=== PATIENT | female | born 1990 | race Two or more races ===

== ENCOUNTER 2018-03-21 13:28 | Outpatient (RCR) | payer MEDICAID ==
[~2018-03-21] VITALS: Ht 147.3 cm; Wt 75.7 kg
--- NOTE | 2018-03-21 16:52 | Medical Nutrition Therapy ---
Nutrition Anthropometrics Height (Inches): 58 (stated) Weight (Pounds): 167 (30wk PG-Prepreg wt 159#) Diego Nutrition Score: Diego Nutrition Risk Score: Dietary Referral Nutrition Risk Factors: Nutrition Risk Comment: Nutrition/Food History Breakfast: 2egg, beans, 2 corn tortilla, slasa, 1c juan Lunch: meat, 1c white rice, 1/2c veggie, unstw ice tea Dinner: leftovers- meat, veggiews, 1/2c rice Snacks: HS cookies and milk or cereal and milk Nutritional Education Nutrition Education Topic: Diabetic Nutrition (gestational) Learning Readiness: Interested Teaching Methods: Discussion, Handout, Demonstration Response to Teaching: Verbalize understanding Teaching Recipient: Patient Nutrition Counseling: pt. Pt states reads both Japanese and Faroese. Stated materials in Japanese was fine. Did addrss pt's cultural food preferences. Discussed what is gest DM, what BG numbers were and showed desired range. Discussed talking BG reading before brft and 2 hrs after meals. Reviewed Glycemic index and impact on BG. Reviewed hormonal affect and improtance of limiting CHO to 30 gm for brft and adding protein. Reviewed foods pt currently consuming that have higher GI. Provided meal plan of 30gm CHO. breaft, 45gm Lunch and supper with 15gm tid snacks. Encouraged protein, fat and non starchy veg with meals and snacks. Provided glucometer teaching. Pt was able to success test BG and record amount. Nutrition Monitoring & Eval RD Patient Assessment Time: [address] Assessment Type: RD Education Nutritional Comment: Provided 60 minutes diabetes education focusing on what is gestational diabetes, nutrition and glucometer education. Copies To Copies to: MAREN CORNELL BETH Mar 21, 2018 16:28
== END 2018-04-05 ==
LOC: LAB 13:28
PROVIDERS: ATTEND Physician Assistant
DX: O24.419 Gestational diabetes mellitus in pregnancy, unspecified control (principal); Z3A.30 30 weeks gestation of pregnancy
CPT/HCPCS: G0108 ×2

== ENCOUNTER 2018-05-18 04:51 | Inpatient (IN) | payer MEDICAID ==
[2018-05-18] VITALS (12 sets, daily range): BP systolic 103–121; BP diastolic 61–86; Ht 154.9 cm; Wt 81.6 kg
[~2018-05-18] VITALS: Ht 154.9 cm; Wt 81.6 kg
[~2018-05-18 04:51] MED LIST: PNV1COMB5
[2018-05-18] MEDS ORDERED: LR(*) 1000 ML BAG 1,000 ML IV SCH (04:53)
[2018-05-18] MEDS ORDERED: CITRIC ACID/SOD CITRATE 30 ML PO ONE (04:55)
[2018-05-18] MEDS ORDERED: cefOXitin/DEX(*) 2GM/50ML PREM 50 ML IVPB ONE (04:55)
[2018-05-18] MEDS ORDERED: FAMOTIDINE 20 MG/50 ML PREMIX IVPB ONE (04:55)
[2018-05-18] MEDS ORDERED: METOCLOPRAMIDE 10 MG/2 ML SDV IVP ONE (04:55)
--- NOTE | 2018-05-18 06:08 | History & Physical ---
History of Present Illness Age of Patient: 27 : 2 Para or TPAL: 1 EDC per LMP: May 26, 2018 Estimated Gestational Age: 39 Chief Complaint History of Present Illness Presents for scheduled at term. complicated by GDM well controlled with diet. History of prior x 1, low transverse in [place]. Past Medical, Surgical, Family and Obstetric Histories reviewed. Please see ACOG chart. History Allergies: Coded Allergies: No Known Drug Allergies (Unverified , 05/18/18) Med Rec Home Meds Reported Medications Pnv #116/Iron Fumarate/Fa/Dha (EXPECTA COMBO PACK) 1 Each Combo..pkg 05/03/18 Review of Systems All Systems Reviewed/Normal: Yes, Except as Noted Exam General Exam Vital Signs Vital Signs Date Time Temp Pulse Resp B/P (MAP) Pulse Ox O2 Delivery O2 Flow Rate FiO2 05/18/18 05:30 98.0 106 16 121/76 (91) 97 Room Air General Apperance: Alert/Awake/No Acute Distress Neuro: No Gross deficits Respiratory: No Respiratory Distress Abdomen: Soft, Non-Tender, Non-Distended Integumentary: Skin Intact without Lesions or Rash Psychological: Alert & Oriented X3, Appropriate Mood & Affect Fetus Heart Tone Variabilty: Moderate FHT Accelerations: 15X15 FHT Category: I Medical Decision Making VTE Prophylasis: Adult Deep Vein Thrombosis/Pulmonary: No Pharmacological Contraindicati: Pt at Low Risk for VTE Mechanical Contraindications: Pt at Low Risk for VTE Assessment and Plan Problems: (1) Previous section Assessment & Plan: Scheduled . Reviewed R/B/A and questions answered. TUNDE YEAGER MD May 18, 2018 06:08
[2018-05-18 06:10] LABS: PLATELET COUNT, AUTOMATED 138 K/uL (150-450)
[2018-05-18] MEDS ORDERED: WATER STERILE FOR IRRIG 1000ML IR ONE (06:21)
[2018-05-18] MEDS ORDERED: MORPHINE PF 5 MG/10 ML AMP ONE (07:00)
[2018-05-18] MEDS ORDERED: PHENYLEPHRINE 10 MG/1 ML VIAL ONE (07:00)
[2018-05-18] MEDS ORDERED: fentaNYL CITR 100 MCG/2 ML AMP ONE (07:00)
[2018-05-18] MEDS ORDERED: OXYTOCIN 10 UNIT/ML SDV ONE ×2 (07:29→07:30)
[2018-05-18] MEDS ORDERED: ONDANSETRON 4 MG/2 ML VIAL ONE (07:33)
[2018-05-18] MEDS ORDERED: KETOROLAC 30 MG/ML VIAL ONE (07:33)
[2018-05-18] MEDS ORDERED: NS 0.9% IRRIGATION 1000ML PLCT IR ONE ×2 (07:47→08:36)
[2018-05-18] MEDS ORDERED: OXYTOCIN 30 UNIT/D5LR 500 ML 500 ML IV PRN (08:49)
[2018-05-18] MEDS ORDERED: SIMETHICONE 80 MG CHEW CHEW PRN (08:50)
[2018-05-18] MEDS ORDERED: ONDANSETRON 4 MG/2 ML VIAL IV PRN (08:50)
[2018-05-18] MEDS ORDERED: LANOLIN OINT 7 GM TUBE TP PRN (08:50)
[2018-05-18] MEDS ORDERED: ACETAMINOPHEN 325 MG TAB PO PRN (08:50)
[2018-05-18] MEDS ORDERED: ZOLPIDEM TARTRATE 10 MG TAB PO PRN (08:50)
[2018-05-18] MEDS ORDERED: PROMETHAZINE 25 MG/ML 1 ML AMP IVP PRN (08:50)
--- NOTE | 2018-05-18 08:53 | Post Operative Note ---
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
[2018-05-18] MEDS: FAMOTIDINE 20 MG TAB PO SCH ×2 (09:00→21:08)
[2018-05-18] MEDS: DOCUSATE CALCIUM 240 MG CAP PO SCH ×2 (09:00→21:08)
[2018-05-18] MEDS: DLR(*) 1000 ML BAG 1,000 ML IV PRN ×3 (10:10→23:40)
[2018-05-18] MEDS ORDERED: diphenhydrAMINE 25 MG CAP PO PRN (10:40)
[2018-05-18] MEDS ORDERED: NALOXONE HCL 0.4 MG/ML VIAL IV PRN (10:40)
--- NOTE | 2018-05-18 11:17 | KLINGLER C-SECTION ---
EVENT DATE: May 18, 2018 SURGEON: Blaze Donato MD ANESTHESIA: Spinal. PREOPERATIVE DIAGNOSES 1. Previous caesarean section x1. 2. Gestational diabetes. 3. 39-week intrauterine . POSTOPERATIVE DIAGNOSES 1. Previous caesarean section x1. 2. Gestational diabetes. 3. 39-week intrauterine . PROCEDURES PERFORMED Repeat low transverse section via Pfannenstiel skin incision. ESTIMATED BLOOD LOSS 700 mL. FLUIDS IV crystalloid. FINDINGS Female , cephalic presentation. omental adhesion overlying the abdominous rectal muscle and adhered to abdominal wall fascia. PROCEDURE IN DETAIL The patient was brought to the operating room with a working IV and spinal anesthetic was administered. She was then placed in the dorsal supine position with a leftward tilt and prepped and draped in the usual sterile fashion. Using a knife, a Pfannenstiel skin incision was made and carried through to the underlying rectus fascia. This was niched in midline and extended laterally with Araujo scissors. The rectus muscles were dissected off underlying rectus muscles using sharp dissection. The omental adhesion was encountered and carefully dissected in order to gain access between the muscles and into the peritoneum. This was taken down and the rectus muscles were in the midline using sharp dissection, taking care to identify and avoid injury to the bladder. Once an adequate space had been created, bladder blade was inserted. This exposed the lower uterine segment of the uterus. Vesicouterine peritoneum was elevated and entered sharply and extended laterally. A bladder flap was created digitally. The bladder blade was reinserted here, further exposing the lower uterine segment of the uterus. A low transverse incision was made with scalpel and carried through to the intraamniotic space. Clear fluid upon amniotomy was noted and a large amount of 2 liters of amniotic fluid was exuded. I could not get the occiput of the infant's head to present to the incision in order to fully express and deliver the infant manually with fundal pressure. Therefore, a Kiwi suction device was asked for and applied to the infant's occiput and elevated to the incision while fundal pressure was applied and this ultimately produced delivery of the infant's head. Further manipulation affected delivery of the shoulders and the remainder of the followed without difficulty. Mouth and nose were bulb suctioned. The cord was clamped and cut and the infant was passed to the awaiting resuscitation team. Cord sample was obtained. The placenta was delivered manually. The uterus was exteriorized and cleared of clots and debris. The uterine incision was repaired using #1 Monocryl in running locking stitch. A second suture of the same type was used to imbricate the first layer, completing two layer closure. This was completely hemostatic upon completion. Therefore, the posterior cul-de-sac was irrigated, swept clean of all clots and debris. The uterus was returned to the abdomen and bilateral pelvic gutters were irrigated and swept clear of clots and debris. The incision was again inspected in situ and found to be hemostatic. Attention was now turned to the omental adhesion. The rectus fascia was elevated Kochers and careful dissection with a Bovie to free the omentum from the rectus muscles was performed until the omental adhesion had been completely released. All sites were inspected for hemostasis and the omentum was pushed back into the abdomen. The parietal peritoneum was then repaired using 3-0 Vicryl in a running and locking stitch. Rectus muscles were reapproximated in the midline with the same stitch. A few capillary bleeders were cauterized in the muscle bellies. Rectus fascia was repaired using 0 Vicryl in running nonlocking stitch. Subcuticular space was irrigated, swept clear of clots and debris. Cautery was applied for hemostasis and the space was closed with 3-0 Vicryl in a running nonlocking fashion. Skin was repaired with 4-0 Monocryl simple subdermal and covered with Dermabond skin adhesive. She tolerated the procedure well. Sponge, lap and needle counts were all correct x3. She was taken to recovery in stable condition. LAWRENCE
[2018-05-18] MEDS: NALBUPHINE HCL 10 MG/ML AMP IVP PRN ×3 (11:18→12:56)
--- NOTE | 2018-05-18 11:29 | Anesthesia OB Pre-Anes Eval ---
History of Present Illness Anesthesia Start Date: May 18, 2018 Anesthesia Start Time: 07:00 OB Anesthesia Diagnosis: repeat c/section Complications: None known EDC: May 26, 2018 : 2 Para: 1 Vital Signs: Vital Signs Date Time Temp Pulse Resp B/P (MAP) Pulse Ox O2 Delivery O2 Flow Rate FiO2 05/18/18 09:53 97.4 73 18 112/86 (95) 96 Room Air Pain Ratin Heart Tones: WNL Result Diagram: 05/18/18 0541 Height (Inches): 61.00 Weight (Pounds): 180 BMI Calculated: 34.01 Past Medical History Medical History: no pertinent history Surgical History: Previous Anesthesia: other (pt. doesn't know) Attended Childbirth Classes?: No Hx Anesthesia Reactions: No Hx Family Anesthesia Reaction: No Home Meds Reported Medications Pnv #116/Iron Fumarate/Fa/Dha (EXPECTA COMBO PACK) 1 Each Combo..pkg 05/03/18 Allergies: Coded Allergies: No Known Drug Allergies (Unverified , 05/18/18) Anesthesia OB ROS Neurological: No migraines/headaches, No seizures, No neuropathy Eyes ROS: contacts in Contacts Statement: Patient agrees to continued use of contacts if general anesthesia is required. ENT: Denies Tooth caps, Denies Loose teeth, Denies Chipped teeth, Denies Dentures, Denies Bridges, Denies Retainers, Denies Veneers, Denies Implants, Denies Tongue ring Pulmonary: No asthma, No smoker (pks/day/yrs) Airway Class: ll Cardiovascular ROS: No edema, No arrhythmia GI ROS: clear liquids Last Solids Date: May 17, 2018 Last Solids Time: 22:00 ROS: No Herpes, No STD(s), No Liver Disease, No Renal Disease; Other Endocrine ROS: No diabetes, No gestational diabetes, No thyroid disorder Musculoskeletal ROS: No low back pain, No low back injury, No scoliosis ASA Classification: 2 Assessment and Plan Anesthesia Plan: SAB Assessment Past Medical, Surgical, Family and Obstetric Histories reviewed. Please see ACOG chart. Reviewed pt's previous anesthesia experience. She doesn't know if she had a spinal or epidural, but no "sleep". Spinal block risks and benefits explained to patient's satisfaction. Also discussed general anesthesia risks and benefits explained to patient's satisfaction. Anesthesia Stop Day: May 18, 2018 Anesthesia Stop Time: 09:10 ANASTASIA OWENS CRNA May 18, 2018 11:29
[2018-05-18] MEDS: KETOROLAC 30 MG/ML VIAL IVP SCH ×2 (14:31→20:56)
[2018-05-19] MEDS: KETOROLAC 30 MG/ML VIAL IVP SCH (02:20)
[2018-05-19 02:25] VITALS: BP 102/61
[2018-05-19] MEDS: DLR(*) 1000 ML BAG 1,000 ML IV PRN (06:37)
[2018-05-19 06:40] LABS: PLATELET COUNT, AUTOMATED 106 K/uL (150-450)
--- NOTE | 2018-05-19 07:18 | OB/GYN Progress Note ---
OB Subjective Progress Notes Subjective Doing well and pain controlled. Ambulating already and no syncope or issues. GI: NEG Nausea : Voiding Well (catheter) Pain: Mild OB Objective Physical Exam Vital Signs Date Time Temp Pulse Resp B/P (MAP) Pulse Ox O2 Delivery O2 Flow Rate FiO2 05/19/18 02:25 98.1 84 14 102/61 (75) 96 Room Air 84 Intake and Output 05/19/18 07:00 Intake Total 3017 ml Output Total 4075 ml Balance -1058 ml Intake Oral 120 ml IV Total 2897 ml Output Urine Total 1375 ml Estimated Blood Loss 700 ml Other 2000 ml # Voids 1 General Appearance: Alert/Awake/No Acute Distress Neurological: No Gross deficits Cardiovascular: Normal Rhythm & Peripheral Pulses, Regular Rate and Rhythm Respiratory: No Respiratory Distress, Clear to Auscultation Abdomen: Soft, Non-Tender, Non-Distended, Fundus Firm, Non-Tender Incision: Clean, Dry, Intact, Dermabond Integumentary: Skin Intact without Lesions or Rash Psychological: Alert & Oriented X3, Appropriate Mood & Affect Result Diagram: 05/19/18 0539 Assessment and Plan 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 PDA assistance and support. (3) Other specified aftercare following surgery (4) Anemia due to acute blood loss Assessment & Plan: iron supplement TUNDE YEAGER MD May 19, 2018 07:18
[2018-05-19] MEDS: IBUPROFEN 800 MG TAB PO SCH ×2 (08:45→16:30)
[2018-05-19] MEDS: DOCUSATE CALCIUM 240 MG CAP PO SCH ×2 (08:46→21:09)
[2018-05-19] MEDS: FAMOTIDINE 20 MG TAB PO SCH ×2 (08:46→21:09)
[2018-05-19 08:50] VITALS: BP 118/74
[2018-05-19] MEDS ORDERED: FERROUS SULFATE 325 MG TAB PO SCH (09:00)
[2018-05-19] MEDS: FERROUS SULFATE 325 MG TAB PO SCH (09:46)
[2018-05-19 11:15] VITALS: BP 106/68
--- NOTE | 2018-05-19 14:45 | Anesthesia Post Eval Note ---
Anesthesia Post Eval Note Vital Signs Date Time Temp Pulse Resp B/P (MAP) Pulse Ox O2 Delivery O2 Flow Rate FiO2 05/19/18 08:50 98.2 105 16 118/74 (89) 96 Room Air 84 Pt able to participate in Eval: Yes Cardiovascular Status: Satisfactory Respiratory Status: Satisfactory Pain Managment: Satisfactory PO Nausea/Vomiting: Satisfactory Temperature Management: Satisfactory Mental Status: Satisfactory, Alert, Oriented X3 Post-Op Hydration Status: Satisfactory, Tolerating PO Well, Voiding w/o Difficulty Anesthesia Type: SAB Anesthesia Tolerance: Tolerated procedure well without apparent anesthetic complications. LP site clear, no redness or edema. Denies headache or any residual paresthesia. Vital Signs Stable, Patient comfortable and condition stable. ANASTASIA OWENS CRNA May 19, 2018 14:45
[2018-05-19 15:00] VITALS: BP 116/80
[2018-05-20 00:02] VITALS: BP 107/74
[2018-05-20 07:45] VITALS: BP 117/80
[2018-05-20] MEDS: DOCUSATE CALCIUM 240 MG CAP PO SCH (08:21)
[2018-05-20] MEDS: FERROUS SULFATE 325 MG TAB PO SCH (08:21)
[2018-05-20] MEDS: FAMOTIDINE 20 MG TAB PO SCH (08:21)
[2018-05-20] MEDS: IBUPROFEN 800 MG TAB PO SCH ×2 (08:22)
[2018-05-20] MEDS ORDERED: INFLUENZA VIRUS VAC 0.5ML SYR IM ONLY ONE (09:00)
[2018-05-20] MEDS ORDERED: DIPHTH/TETANUS/ACEL. PERTUSSIS IM ONLY ONE (09:00)
[2018-05-20] MEDS ORDERED: MEASLES,MUMP,RUBELLA VAC 0.5ML SUBQ ONE (09:00)
--- NOTE | 2018-05-20 13:12 | OB/GYN Progress Note ---
OB Subjective Progress Notes Subjective Doing well. Pain controlled and ambulating well. Voiding well. Tolerating regular diet. GI: NEG Nausea : Voiding Well Pain: Mild OB Objective Physical Exam Vital Signs Date Time Temp Pulse Resp B/P (MAP) Pulse Ox O2 Delivery O2 Flow Rate FiO2 05/20/18 07:45 98.0 87 15 117/80 (92) 95 Room Air Intake and Output 05/20/18 07:00 Intake Total 920 ml Output Total 2275 ml Balance -1355 ml Intake Oral 920 ml Output Urine Total 2275 ml General Appearance: Alert/Awake/No Acute Distress Neurological: No Gross deficits Cardiovascular: Normal Rhythm & Peripheral Pulses, Regular Rate and Rhythm Respiratory: No Respiratory Distress, Clear to Auscultation Abdomen: Soft, Non-Tender, Non-Distended, Fundus Firm, Non-Tender Incision: Clean, Dry, Intact, Dermabond Integumentary: Skin Intact without Lesions or Rash Psychological: Alert & Oriented X3, Appropriate Mood & Affect Result Diagram: 05/19/18 0539 Assessment and Plan 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 Precautions against bleeding, pain or fever. (3) Other specified aftercare following surgery (4) Anemia due to acute blood loss TUNDE YEAGER MD May 20, 2018 13:12
[2018-05-20] MEDS ORDERED: PER PO (13:13)
[2018-05-20] MEDS ORDERED: IBUP800T37 PO (13:13)
[2018-05-20] MEDS ORDERED: FERR-53 PO (13:15)
--- NOTE | 2018-05-20 13:16 | OB/GYN Discharge Summary ---
Discharge Summary Reason for Hosp/Final Diag: (1) Previous section (2) care and examination immediately after delivery Hospital Course & Plan: Home today. Precautions against bleeding, pain or fever. (3) Other specified aftercare following surgery (4) Anemia due to acute blood loss Lates Vital Signs Vital Signs Date Time Temp Pulse Resp B/P (MAP) Pulse Ox O2 Delivery O2 Flow Rate FiO2 05/20/18 07:45 98.0 87 15 117/80 (92) 95 Room Air Weight (Pounds): 180 Result Diagram: 05/19/18 0539 Condition: Improved Discharge: Home, Self Alf Meds Active Scripts Oxycodone/Acetaminophen (OXYCODONE/ACETAMINOPHEN 5MG/325 MG) 5 Mg/325 Mg Tab, 1- 2 TAB PO Q4H PRN for PAIN, #20 TAB 0 Refills Prov:TUNDE DONATO MD 05/20/18 Reported Medications Pnv #116/Iron Fumarate/Fa/Dha (EXPECTA COMBO PACK) 1 Each Combo..pkg 05/03/18 Follow up 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 Donato [phone] Follow up in: 2 wks PO Discharge Diet: As Tolerates Discharge Activity: As Tolerates, No Heavy Lifting x 6 wks, No Heavy Lifting > 10lb, Pelvic Rest Copies to: TUNDE DONATO MD ; TUNDE DONATO MD May 20, 2018 13:14
== END 2018-05-20 15:15 | disposition home or self-care (01) | DRG 765 ==
LOC: OB 04:51
PROVIDERS: ADMIT Obstetrics & Gynecology; ATTEND Obstetrics & Gynecology
PROC: 0DNU0ZZ Release Omentum, Open Approach (ICD-10-PCS; 2018-05-18)
PROC: 10D00Z1 Extraction of Products of Conception, Low, Open Approach (ICD-10-PCS; principal; 2018-05-18 07:00)
DX: O34.211 Maternal care for low transverse scar from previous cesarean delivery (principal); D62 Acute posthemorrhagic anemia; O24.429 Gestational diabetes mellitus in childbirth, unspecified control; O99.62 Diseases of the digestive system complicating childbirth; K66.0 Peritoneal adhesions (postprocedural) (postinfection); O99.02 Anemia complicating childbirth; Z3A.39 39 weeks gestation of pregnancy; Z37.0 Single live birth
CPT/HCPCS: 36415; 85014; 85018; 85025; 86850; 86900; 86901; J0694; J1885; J2270; J2300; J2370; J2405; J2590; J2765; J3010; J3490

== ENCOUNTER 2018-06-22 14:22 | Inpatient (IN) | payer MEDICAID ==
[~2018-06-22] VITALS: Ht 154.9 cm; Wt 72.6 kg
[~2018-06-22 14:22] MED LIST changes: +FERR-53 PO; +IBUP800T37 PO; +PER PO
[2018-06-22] MEDS ORDERED: NS(*) 0.9% 1000 ML BAG 1,000 ML IV ONE (14:38)
[2018-06-22] MEDS ORDERED: ONDANSETRON 4 MG/2 ML VIAL IVP ONE (14:40)
[2018-06-22] MEDS ORDERED: BIRTH CONTROL (14:57)
[2018-06-22 15:25] LABS: INR 0.97; PLATELET COUNT, AUTOMATED 216 K/uL (150-450)
[2018-06-22] MEDS ORDERED: ONDANSETRON 4 MG/2 ML VIAL IVP PRN (16:35)
[2018-06-22] MEDS ORDERED: NALOXONE HCL 0.4 MG/ML VIAL IVP PRN (16:35)
[2018-06-22] MEDS ORDERED: HYDROmorphone PCA 6 MG/30 ML IV PRN (16:35)
[2018-06-22] MEDS ORDERED: FLUSH 10 ML SYR IVP PRN (16:35)
--- NOTE | 2018-06-22 16:36 | ER Report ---
History and Physical Time Seen By MD: 14:35 Hx. 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 Cardiovascular: No chest pain, no palpitations. Gastrointestinal: Nausea without vomiting epigastric and abdominal pain Musculoskeletal: No back pain. Remainder of the 14 system rev: Yes Allergies: Coded Allergies: No Known Drug Allergies (Unverified , 06/22/18) Home Meds Reported Medications [ Control] No Conflict Check 06/22/18 Pnv #116/Iron Fumarate/Fa/Dha (EXPECTA COMBO PACK) 1 Each Combo..pkg 05/03/18 Discontinued Scripts Ferrous Sulfate (FERROUS SULFATE) 325 Mg Tablet, 325 MG PO DAILY, #30 TAB 0 Refills Prov:TUNDE YEAGER MD 05/20/18 Oxycodone/Acetaminophen (OXYCODONE/ACETAMINOPHEN 5MG/325 MG) 5 Mg/325 Mg Tab, 1- 2 TAB PO Q4H PRN for PAIN, #20 TAB 0 Refills Prov:TUNDE YEAGER MD 05/20/18 Ibuprofen (IBUPROFEN) 800 Mg Tablet, 800 MG PO Q8H PRN for PAIN, #30 TAB 0 Refills Prov:TUNDE YEAGER MD 05/20/18 Reviewed Nurses Notes: Yes Old Medical Records Reviewed: Yes Hx Smoking: No Smoking Status: Never Smoker Exposure to Second Hand Smoke?: No Constitutional Vital Sign - Last 24 Hours 06/22/18 14:47 Temp 98.3 Pulse 95 Resp 16 B/P (MAP) 118/70 Pulse Ox 93 Physical Exam General Appearance: The patient is alert, has no immediate need for airway protection and no current signs of toxicity. [ ] Eyes: Pupils equal and round no injection. Respiratory: Chest is non tender, lungs are clear to auscultation. Cardiac: regular rate and rhythm [ ] Gastrointestinal: Upper quadrant and epigastric abdominal penalty palpation rebound guarding or masses normal bowel sounds otherwise unremarkable Musculoskeletal: Neck: Neck is supple and non tender. Extremities have full range of motion and are non tender. Skin: No rashes or lesions. [ ] DIFFERENTIAL DIAGNOSIS: After history and physical exam differential diagnosis was considered for gallstone pancreatitis gastritis enteritis Medical Decision Making Data Points Result Diagram: 06/22/18 1506 06/22/18 1506 Laboratory Hematology Test 06/22/18 14:55 06/22/18 15:06 Urine Color Yellow Urine Clarity Clear Urine pH 8.0 pH (4.8-9.5) Urine Specific Willard 1.006 Urine Protein Negative mg/dL (NEGATIVE) Urine Glucose (UA) Negative mg/dL (NEGATIVE) Urine Ketones Negative mg/dL (NEGATIVE) Urine Blood Negative (NEGATIVE) Urine Nitrite Negative (NEGATIVE) Urine Bilirubin Negative (NEGATIVE) Urine Urobilinogen Negative mg/dL (0.2-1.9) Urine Leukocyte Esterase Small (NEGATIVE) Urine RBC <1 /HPF (0-2/HPF) Urine WBC 2 /HPF (0-5/HPF) Urine Squamous Epithelial Cells Moderate /LPF (</=FEW) Urine Transitional Epithelial Cells Moderate /LPF (NONE-FEW) Urine Bacteria Few /HPF (NONE-FEW) Urine Mucus None /HPF (NONE-FEW) Red Blood Count 4.40 M/uL (4.17-5.56) Mean Corpuscular Volume 90.8 fL (80.0-96.0) Mean Corpuscular Hemoglobin 30.2 pg (26.0-33.0) Mean Corpuscular Hemoglobin Concent 33.3 g/dL (32.0-36.0) Red Cell Distribution Width 15.7 % (11.5-14.5) Mean Platelet Volume 9.6 fL (7.2-11.1) Neutrophils (%) (Auto) 81.2 % (39.4-72.5) Lymphocytes (%) (Auto) 11.8 % (17.6-49.6) Monocytes (%) (Auto) 6.1 % (4.1-12.4) Eosinophils (%) (Auto) 0.5 % (0.4-6.7) Basophils (%) (Auto) 0.4 % (0.3-1.4) Nucleated RBC Relative Count (auto) 0.0 /100WBC Neutrophils # (Auto) 6.0 K/uL (2.0-7.4) Lymphocytes # (Auto) 0.9 K/uL (1.3-3.6) Monocytes # (Auto) 0.4 K/uL (0.3-1.0) Eosinophils # (Auto) 0.0 K/uL (0.0-0.5) Basophils # (Auto) 0.0 K/uL (0.0-0.1) Nucleated RBC Absolute Count (auto) 0.00 K/uL Prothrombin Time 12.9 seconds (12.0-14.4) Prothromb Time International Ratio 0.97 Activated Partial Thromboplast Time 29 seconds (23-35) Sodium Level 142 mmol/L (137-145) Potassium Level 3.7 mmol/L (3.5-5.0) Chloride Level 101 mmol/L (98-107) Carbon Dioxide Level 28 mmol/L (22-31) Blood Urea Nitrogen 10 mg/dl (7-18) Creatinine 0.70 mg/dl (0.52-1.04) Glomerular Filtration Rate Calc > 60.0 Random Glucose 101 mg/dl (75-110) Calcium Level 9.7 mg/dl (8.4-10.2) Total Bilirubin 1.8 mg/dl (0.2-1.3) Aspartate Amino Transf (AST/SGOT) 437 U/L (0-35) Alanine Aminotransferase (ALT/SGPT) 617 U/L (0-56) Alkaline Phosphatase 196 U/L (0-126) Total Protein 7.8 g/dl (6.3-8.2) Albumin 4.3 g/dl (3.5-5.0) Lipase 86494 U/L (23-300) Chemistry Test 06/22/18 14:55 06/22/18 15:06 Urine Color Yellow Urine Clarity Clear Urine pH 8.0 pH (4.8-9.5) Urine Specific Willard 1.006 Urine Protein Negative mg/dL (NEGATIVE) Urine Glucose (UA) Negative mg/dL (NEGATIVE) Urine Ketones Negative mg/dL (NEGATIVE) Urine Blood Negative (NEGATIVE) Urine Nitrite Negative (NEGATIVE) Urine Bilirubin Negative (NEGATIVE) Urine Urobilinogen Negative mg/dL (0.2-1.9) Urine Leukocyte Esterase Small (NEGATIVE) Urine RBC <1 /HPF (0-2/HPF) Urine WBC 2 /HPF (0-5/HPF) Urine Squamous Epithelial Cells Moderate /LPF (</=FEW) Urine Transitional Epithelial Cells Moderate /LPF (NONE-FEW) Urine Bacteria Few /HPF (NONE-FEW) Urine Mucus None /HPF (NONE-FEW) White Blood Count 7.4 k/uL (4.5-11.0) Red Blood Count 4.40 M/uL (4.17-5.56) Hemoglobin 13.3 g/dL (12.0-16.0) Hematocrit 39.9 % (34.0-47.0) Mean Corpuscular Volume 90.8 fL (80.0-96.0) Mean Corpuscular Hemoglobin 30.2 pg (26.0-33.0) Mean Corpuscular Hemoglobin Concent 33.3 g/dL (32.0-36.0) Red Cell Distribution Width 15.7 % (11.5-14.5) Platelet Count 216 K/uL (150-450) Mean Platelet Volume 9.6 fL (7.2-11.1) Neutrophils (%) (Auto) 81.2 % (39.4-72.5) Lymphocytes (%) (Auto) 11.8 % (17.6-49.6) Monocytes (%) (Auto) 6.1 % (4.1-12.4) Eosinophils (%) (Auto) 0.5 % (0.4-6.7) Basophils (%) (Auto) 0.4 % (0.3-1.4) Nucleated RBC Relative Count (auto) 0.0 /100WBC Neutrophils # (Auto) 6.0 K/uL (2.0-7.4) Lymphocytes # (Auto) 0.9 K/uL (1.3-3.6) Monocytes # (Auto) 0.4 K/uL (0.3-1.0) Eosinophils # (Auto) 0.0 K/uL (0.0-0.5) Basophils # (Auto) 0.0 K/uL (0.0-0.1) Nucleated RBC Absolute Count (auto) 0.00 K/uL Prothrombin Time 12.9 seconds (12.0-14.4) Prothromb Time International Ratio 0.97 Activated Partial Thromboplast Time 29 seconds (23-35) Glomerular Filtration Rate Calc > 60.0 Calcium Level 9.7 mg/dl (8.4-10.2) Total Bilirubin 1.8 mg/dl (0.2-1.3) Aspartate Amino Transf (AST/SGOT) 437 U/L (0-35) Alanine Aminotransferase (ALT/SGPT) 617 U/L (0-56) Alkaline Phosphatase 196 U/L (0-126) Total Protein 7.8 g/dl (6.3-8.2) Albumin 4.3 g/dl (3.5-5.0) Lipase 97172 U/L (23-300) Coagulation Test 06/22/18 15:06 Prothrombin Time 12.9 seconds Prothromb Time International Ratio 0.97 Activated Partial Thromboplast Time 29 seconds Urinalysis Test 06/22/18 14:55 Urine Color Yellow Urine Clarity Clear Urine pH 8.0 pH (4.8-9.5) Urine Specific Willard 1.006 Urine Protein Negative mg/dL (NEGATIVE) Urine Glucose (UA) Negative mg/dL (NEGATIVE) Urine Ketones Negative mg/dL (NEGATIVE) Urine Blood Negative (NEGATIVE) Urine Nitrite Negative (NEGATIVE) Urine Bilirubin Negative (NEGATIVE) Urine Urobilinogen Negative mg/dL (0.2-1.9) Urine Leukocyte Esterase Small (NEGATIVE) Urine RBC <1 /HPF (0-2/HPF) Urine WBC 2 /HPF (0-5/HPF) Urine Squamous Epithelial Cells Moderate /LPF (</=FEW) Urine Transitional Epithelial Cells Moderate /LPF (NONE-FEW) Urine Bacteria Few /HPF (NONE-FEW) Urine Mucus None /HPF (NONE-FEW) ED Course/Re-evaluation ED Course [facility] medical course 27-year-old female epigastric grandeur back she has a lipase of 58,000 elevated liver functions up in the 600 range ultrasound confirms no retained ductal stones gallstone pancreatitis with a lot of echogenic shadowing patient be admitted to general surgery Decision to Disposition Date: Jun 22, 2018 Decision to Disposition Time: 16:35 Depart Departure Latest Vital Signs Vital Signs Date Time Temp Pulse Resp B/P (MAP) Pulse Ox O2 Delivery O2 Flow Rate FiO2 06/22/18 14:47 98.3 95 16 118/70 93 Impression: Primary Impression: Acute gallstone pancreatitis Condition: Improved Disposition: Admitted from ER PETTY CEDENO MD Jun 22, 2018 16:36
[2018-06-22 17:10] VITALS: BP 128/91
--- NOTE | 2018-06-22 17:25 | RADIOLOGY IMAGING REPORT ---
FACILITY: [facility] PATIENT NAME: Juliet Seymour : 1990 MR: [id number] V: [id number] EXAM DATE: ORDERING PHYSICIAN: PETTY CEDENO TECHNOLOGIST[place] [facility] [place] Se[place] : 1990 Visit/Account:[id number] Date of Sevice: 06/22/2018 GALLBLADDER HISTORY: Epigastric pain on and off for a few years, one month COMPARISON: None. FINDINGS: Gallbladder: There is extensive acoustic shadowing emanating from the gallbladder fossa. By history the patient has not had a cholecystectomy there for this is likely related to numerous shadowing ston es within the gallbladder. The gallbladder wall appears thickened at 4.5 mm. Liver: Negative. Common duct: The common , bile duct was not well-seen by technologist notation estimated measurement 3.5 mm diameter. Pancreas: Partially obscured by bowel, visualized aspects unremarkable. Right kidney: Negative. Upper abdominal aorta and IVC: Patent. Ascites: None visualized. IMPRESSION: There is extensive acoustic shadowing emanating from the gallbladder fossa. By history the patient h as not had a cholecystectomy therefore this is likely related to numerous shadowing stones within the gallbladder. Gallbladder wall appears thickened at 4.5 mm. Common bile duct was not well-seen alth ough the estimated measurement is 3.5 mm Report Dictated By: Peggy Diaz MD at 06/22/2018 5:17 PM Report E-Signed By: Peggy Diaz MD at 06/22/2018 5:21 PM WSN:[email or web address]
[2018-06-22] MEDS: NS(*) 0.9% 1000 ML BAG 1,000 ML IV PRN (17:53)
[2018-06-22] MEDS: IMIPENEM/CILASTA(*) 500MG VIAL 500 MG in NS(*) 0.9% 100 ML BAG 100 ML IVPB SCH (18:17)
--- NOTE | 2018-06-22 18:58 | Gen Surgery History & Physical ---
History of Present Illness Chief Complaint Abdominal pain History of Present Illness 27yo female, 1 month post with her second baby via , presents with 1 day h/o upper abdominal pain and back pain with N/V. 1st episode of thi s; no prior history. Now feeling better after getting pain meds. No F/C, no constipation or diarrhea. U/S c/w gallstones and mild gallbladder wall thickening. Lipase is >50K and LFTs are mildly elevated, mostly transaminitis. Her is currently admitted upstairs on FCU with hypoxia. History Problems: (1) Previous section Home Meds Reported Medications [ Control] No Conflict Check 06/22/18 Pnv #116/Iron Fumarate/Fa/Dha (EXPECTA COMBO PACK) 1 Each Combo..pkg 05/03/18 Discontinued Scripts Ferrous Sulfate (FERROUS SULFATE) 325 Mg Tablet, 325 MG PO DAILY, #30 TAB 0 Refills Prov:TUNDE YEAGER MD 05/20/18 Oxycodone/Acetaminophen (OXYCODONE/ACETAMINOPHEN 5MG/325 MG) 5 Mg/325 Mg Tab, 1- 2 TAB PO Q4H PRN for PAIN, #20 TAB 0 Refills Prov:TUNDE YEAGER MD 05/20/18 Ibuprofen (IBUPROFEN) 800 Mg Tablet, 800 MG PO Q8H PRN for PAIN, #30 TAB 0 Refills Prov:TUNDE YEAGER MD 05/20/18 Allergies: Coded Allergies: No Known Drug Allergies (Unverified , 06/22/18) Patient History: Patient reports no known family medical history. Review of Systems All Systems Reviewed/Normal: Yes, Except as Noted Gastrointestinal: Nausea, Vomiting, Abdominal Pain Exam General Appearance: Alert, Awake, No Acute Distress, Afebrile Neuro: No Gross deficits Eyes: PERRLA GI: Other (Soft, mild epigastric TTP) Extremities: Warm, Perfused Psych: Alert & Oriented X3, Appropriate Mood & Affect Medical Decision Making Data Points Result Diagram: 06/22/18 1506 06/22/18 1506 Assessment and Plan Problems: (1) Acute gallstone pancreatitis Status: Acute Assessment & Plan: 06/22/18: Admit, NPO, bowel rest, IV fluids, follow her clinical exam and labs. Follow closely for worsening pancreatitis, follow fluid status. Will go to surgery for lap ace when pancreatitis resolves. I have e xplained gallstone pancreatitis with the patient in detail and I have explained surgery, including both laparoscopic and open cholecystectomy. Pt seems to understand this discussion and her questions have been answered. She would like to proceed with this plan, including surgery when her pancreatitis resolves. We will move her up to FCU so she can be with her and continue breast feeding. Condition Stable. Time Spent: < 30 min Venous Thromboembolism VTE Risk Physician Assess for VTE Risk: Yes Patient's VTE Risk: Low VTE Diagnostic Test 2 Days Prior to Admit: No Antithrombotics Is Pt On Any Antithrombotics?: No PÉREZ SANTOS MD Jun 22, 2018 18:58
[2018-06-22 19:03] VITALS: BP 115/75
--- NOTE | 2018-06-22 21:55 | RADIOLOGY IMAGING REPORT ---
FACILITY: [facility] [place] PATIENT NAME: Juliet Seymour : 1990 MR: [id number] V: [id number] EXAM DATE: ORDERING PHYSICIAN: PETTY CEDENO TECHNOLOGIST: Location: [facility] [place] Patient: Juliet Seymour : 1990 Visit/Account:[id number] Date of Sevice: 06/22/2018 2 VIEWS CHEST INDICATION: Pre-op evaluation for cholecystectomy. COMPARISON: None available FINDINGS: Cardiomediastinal silhouette and pulmonary vessels within normal limits. There is no focal infiltrate or lobar consolidation. There is no pneumothorax or pleural effusion. No nodule. Upper abdomen is unremarkable. No acute bony abnormality. IMPRESSION: 1. No acute cardiopulmonary process. Report Dictated By: Zen Cordova at 06/22/2018 9:50 PM Report E-Signed By: Zen Cordova at 06/22/2018 9:51 PM WSN:[id number]
[2018-06-23] VITALS (7 sets, daily range): BP systolic 101–114; BP diastolic 60–81
[2018-06-23] MEDS: IMIPENEM/CILASTA(*) 500MG VIAL 500 MG in NS(*) 0.9% 100 ML BAG 100 ML IVPB SCH ×5 (00:15→23:39)
[2018-06-23] MEDS: NS(*) 0.9% 1000 ML BAG 1,000 ML IV PRN (03:11)
--- NOTE | 2018-06-23 06:04 | General Surgery Progress Note ---
Subjective Progress Notes Subjective No complaints this morning. No further pain. No more N/V. Physical Exam Vital Signs Date Time Temp Pulse Resp B/P (MAP) Pulse Ox O2 Delivery O2 Flow Rate FiO2 06/23/18 05:28 16 94 06/23/18 05:00 98.1 88 110/74 (86) Room Air Intake and Output 06/23/18 07:00 Intake Total 1943 ml Balance 1943 ml Intake IV Total 1943 ml # Voids 1 General Appearance: Alert, Awake, No Acute Distress, Afebrile GI: Soft and Non-Tender Extremities: Warm, Perfused Result Diagram: 06/22/18 1506 06/22/18 1506 Assessment and Plan Problems: (1) Acute gallstone pancreatitis Status: Acute Assessment & Plan: 06/22/18: Admit, NPO, bowel rest, IV fluids, follow her clinical exam and labs. Follow closely for worsening pancreatitis, follow fluid status. Will go to surgery for lap ace when pancreatitis resolves. I have explained gallstone pancreatitis with the patient in detail and I have explained surgery, including both laparoscopic and open cholecystectomy. Pt seems to understand this discussion and her questions have been answered. She would like to proceed with this plan, including surgery when her pancreatitis resolves. We will move her up to FCU so she can be with her and continue breast feeding. 06/23/18: Doing well. No symptoms currently. Labs not drawn yet. Will see what labs are and if markedly improved will proceed with surgery later today vs tomorrow. Condition Stable. Time Spent: < 30 min Exam Sepsis Risk: No Definite Risk PÉREZ SANTOS MD Jun 23, 2018 06:04
[2018-06-23] MEDS: KCL/D1/2NS 20 MEQ 1000 ML 1,000 ML IV SCH ×2 (06:32→16:58)
[2018-06-23 07:01] LABS: PLATELET COUNT, AUTOMATED 181 K/uL (150-450)
[2018-06-23] MEDS ORDERED: ENOXAPARIN 40 MG/0.4ML SYR SC SCH (09:00)
[2018-06-23] MEDS: PANTOPRAZOLE SOD 40 MG IV VIAL IVP SCH (09:08)
--- NOTE | 2018-06-23 15:05 | Antimicrobial Stewardship ---
Antimicrobial Stewardship Empiricly appropriate: Yes Comment Patient admitted for gallstones and pancreatitis. suspecting infection will go to surgery 06/23 or 06/24. Renal/Hepatic dosing: Yes Comment Hepatic enzymes are elevated but Primaxin does not need to be dose adjusted in l iver impairment. Reviewed for Drug Interaction: Yes Monitored for Toxicities: Yes IV to PO Opportunity: No Determine cumulative duration: Individualized and will depend on what is found during surgery. IKE MOORE Jun 23, 2018 15:05
[2018-06-24] VITALS (15 sets, daily range): BP systolic 104–131; BP diastolic 68–97; Ht 154.9 cm; Wt 72.6 kg
[2018-06-24] MEDS: IMIPENEM/CILASTA(*) 500MG VIAL 500 MG in NS(*) 0.9% 100 ML BAG 100 ML IVPB SCH (05:19)
[2018-06-24 05:28] LABS: PLATELET COUNT, AUTOMATED 179 K/uL (150-450)
--- NOTE | 2018-06-24 07:46 | General Surgery Progress Note ---
Subjective Progress Notes Subjective No new issues overnight Physical Exam Vital Signs Date Time Temp Pulse Resp B/P (MAP) Pulse Ox O2 Delivery O2 Flow Rate FiO2 06/24/18 04:30 97.7 61 12 105/81 (89) 94 Room Air Intake and Output 06/24/18 06:59 Intake Total 2438 ml Balance 2438 ml Intake Oral 1170 ml IV Total 1268 ml # Voids 2 General Appearance: Alert, Awake, No Acute Distress, Afebrile ENT: Moist Mucous Membranes Cardiovascular: Regular Rate and Rhythm Respiratory: No Respiratory Distress, Clear to Auscultation GI: Other (tender in RUQ) Extremities: Soft and Non Tender Psych: Alert & Oriented X3 Result Diagram: 06/24/1851006/24/18 05 Assessment and Plan Problems: (1) Acute gallstone pancreatitis Status: Acute Assessment & Plan: 06/22/18: Admit, NPO, bowel rest, IV fluids, follow her clinical exam and labs. Follow closely for worsening pancreatitis, follow fluid status. Will go to surgery for lap ace when pancreatitis resolves. I have explained gallstone pancreatitis with the patient in detail and I have explained surgery, including both laparoscopic and open cholecystectomy. Pt seems to understand this discussion and her questions have been answered. She would like to proceed with this plan, including surgery when her pancreatitis resolves. We will move her up to FCU so she can be with her and continue breast feeding. 06/23/18: Doing well. No symptoms currently. Labs not drawn yet. Will see what labs are and if markedly improved will proceed with surgery later today vs tomorrow. 06/24/18: Lipase and T Bili back to WNL. I discussed the planned procedure of laparoscopic cholecystectomy with cholangiography including the risks and possible complications. All questions were answered. Informed consent obtained. To OR this am. Time Spent: < 30 min Exam Sepsis Risk: No Definite Risk HARPREET NOLASCO MD Jun 24, 2018 07:46
[2018-06-24] MEDS: PANTOPRAZOLE SOD 40 MG IV VIAL IVP SCH (08:17)
[2018-06-24] MEDS ORDERED: NORMOSOL R SOLN(*) 1000 ML BAG 1,000 ML IV ONE (08:19)
[2018-06-24] MEDS ORDERED: PROPOFOL EMUL(*) 10MG/ML 20 ML 20 ML ONE (09:07)
[2018-06-24] MEDS ORDERED: ONDANSETRON 4 MG/2 ML VIAL ONE (09:07)
[2018-06-24] MEDS ORDERED: DEXAMETHASONE SOD PHOS 10MG/ML ONE (09:07)
[2018-06-24] MEDS ORDERED: LIDOCAINE MPF 1% 5 ML VIAL ONE (09:07)
[2018-06-24] MEDS ORDERED: fentaNYL CITR 250 MCG/5 ML AMP ONE (09:07)
[2018-06-24] MEDS ORDERED: SUGAMMADEX SOD 200 MG/2 ML SDV ONE (09:10)
[2018-06-24] MEDS ORDERED: KETAMINE HCL 200 MG/20 ML MDV ONE (09:12)
[2018-06-24] MEDS ORDERED: HALOPERIDOL LACT 5 MG/ML VIAL IM ONE (09:15)
[2018-06-24] MEDS ORDERED: MIDAZOLAM 2 MG/2 ML VIAL ONE (09:23)
[2018-06-24] MEDS ORDERED: ROCURONIUM BROM 10 MG/ML 10 ML ONE (09:30)
[2018-06-24] MEDS ORDERED: BUPIV/EPI 0.25% 1:200,000 50ML INFIL ONE (10:20)
[2018-06-24] MEDS ORDERED: KETOROLAC 30 MG/ML VIAL ONE (10:22)
--- NOTE | 2018-06-24 10:58 | Post Operative Progress Note ---
Post Operative Progress Note Date: Jun 24, 2018 Time: 10:56 Surgeon: Nina Governor Assembler: BABAK Anesthesia: General Pre-Op Diagnosis: Gallstone Pancreatitis Post-Op Diagnosis: same Findings: normal cholangiogram Procedure(s): Laparoscopic cholecystectomy and IOC Specimen Removed:(May be N/A): gallbladder with stones Complications: none Fluids: 900ml Estimated Blood Loss: < 5 ml Date OP Note Dictated: Jun 24, 2018 Time OP Note Dictated: 10:57 HARPREET NOLASCO MD Jun 24, 2018 10:58
[2018-06-24] MEDS ORDERED: FLUSH 10 ML SYR IVP PRN (11:00)
[2018-06-24] MEDS ORDERED: ONDANSETRON 4 MG/2 ML VIAL IVP PRN (11:00)
[2018-06-24] MEDS ORDERED: fentaNYL CITR 100 MCG/2 ML AMP ONE (11:12)
--- NOTE | 2018-06-24 11:42 | OPERATIVE REPORT 1 ---
EVENT DATE: June 24, 2018 SURGEON: Oliverio Wood MD ANESTHESIOLOGIST: [*] ANESTHESIA: General endotracheal. PETROLEUM ANALYST: RN PREOPERATIVE DIAGNOSIS Gallstone pancreatitis. POSTOPERATIVE DIAGNOSIS Gallstone pancreatitis. PROCEDURE PERFORMED Laparoscopic cholecystectomy with intraoperative cholangiography. DESCRIPTION OF PROCEDURE The patient was taken to the operating room and placed in the supine position. After induction of adequate of general endotracheal anesthesia, a time-out was taken. The abdomen was then prepped and draped in the usual sterile fashion. Attention was then turned to the umbilicus. A supraumbilical incision was made in the midline. This was carried through to the skin and subcutaneous tissue. The fascia was identified and incised. The peritoneal cavity was entered under direct visualization. A 0 Vicryl suture was placed in the fascia in a [id number] fashion. A 10-12 trocar was then introduced. A pneumoperitoneum was created. The laparoscope was introduced and general exploration begun. An involuting uterus was noted. There were no other abnormalities noted in the lower abdomen. Attention was then turned to the upper abdomen. Additional ports were then placed, a 5 mm port care home between the xiphoid process and umbilicus. Two 5 mm ports were placed in the right upper quadrant. Using a grasper, the gallbladder was grasped at the fundus and retracted anteriorly and superiorly. Adhesions between omentum and the lower portion of the gallbladder were then taken down with the Harmonic scalpel. Using another grasper, the infundibulum was then retracted inferiorly and laterally. The peritoneum overlying the cyrus hepatis was then incised. Using careful blunt dissection, the cystic artery and cystic duct were carefully delineated. The gallbladder was dissected free from the liver surface at its lower portion. A critical view of safety was obtained. The cystic artery was divided with the Harmonic scalpel. The cystic duct was then clipped down the gallbladder side and the cystic duct then opened. A Taut catheter was inserted via a 14-gauge Angiocath in the right upper quadrant. This was positioned in the cystic duct and held in place with hemoclip. Intraoperative cholangiography was performed. This showed free flow of contrast into the duodenum. There were no filling defects noted and ductal anatomy appeared normal. The Taut catheter was removed and the cystic duct then doubly clipped. The cystic duct was then divided. Using the Harmonic scalpel, the gallbladder was dissected free from the liver bed. A 5 mm scope was then assembled and placed through the upper midline port. An endo pouch was then inserted through the umbilical port. The gallbladder was placed in the pouch and gallbladder was removed. The gallbladder and stones were submitted to pathology for histologic evaluation. The right upper quadrant was irrigated with copious amounts of saline, adequate hemostasis confirmed. The pneumoperitoneum was evacuated. All ports were removed. Adequate hemostasis confirmed. All wounds were then infiltrated with 0.25% Marcaine with epinephrine for postop pain control. The supraumbilical midline port was then closed with 0 Vicryl suture for the fascia. The skin of all wounds were closed with running 4-0 Monocryl subcuticular suture. Dermabond was applied. Final sponge, instrument and needle counts were correct x2. The patient tolerated this well and was taken to the PACU in stable condition. She will be admitted back to her hospital bed for continued postoperative care. LAWRENCE
[2018-06-24] MEDS: KCL/D1/2NS 20 MEQ 1000 ML 1,000 ML IV SCH ×2 (12:05→14:39)
[2018-06-24] MEDS: APAP/HYDROCODONE 325/5 TAB PO PRN ×2 (12:51→15:53)
--- NOTE | 2018-06-24 13:23 | RADIOLOGY IMAGING REPORT ---
FACILITY: [facility] - [place] PATIENT NAME: Juliet Seymour : 1990 MR: [id number] V: [id number] EXAM DATE: [id number] ORDERING PHYSICIAN: HARPREET NOLASCO TECHNOLOGIST: Location: [facility] - [place] Patient: Juliet Seymour : 1990 Visit/Account:[id number] Date of Sevice: 06/24/2018 Exam type: CHOLANGIOGRAM OPERATIVE History: CHOLECYSTITIS Comparison: None. Findings: 75 intraoperative CR spot views of the right upper quadrant were submitted the total prostate be time was 14.8 seconds. The cumulative continuous fluoroscopy dose was 0.10836 mGray per meter squared. Contrast is seen in the right left hepatic ducts, common hepatic duct and common bile duct with free flow contrast into duodenum. No intraluminal filling defects are identified in the visualized portio n of the biliary tree IMPRESSION: 1. Unremarkable intraoperative cholangiogram Report Dictated By: Peggy Diaz MD at 06/24/2018 1:17 PM Report E-Signed By: Peggy Diaz MD at 06/24/2018 1:19 PM WSN:[email or web address]
[2018-06-24] MEDS ORDERED: APAP/HYDROCODONE 325/5 TAB PO PRN ×2 (17:35→17:40)
[2018-06-24] MEDS ORDERED: ACETAMINOPHEN 325 MG TAB PO PRN (18:30)
[2018-06-24] MEDS: KETOROLAC 30 MG/ML VIAL IVP SCH (19:58)
[2018-06-24] MEDS: DOCUSATE SODIUM 100 MG CAP PO SCH (21:00)
[2018-06-25] VITALS: BP 109/73
[2018-06-25] MEDS: KETOROLAC 30 MG/ML VIAL IVP SCH ×3 (02:06→14:00)
[2018-06-25] MEDS: KCL/D1/2NS 20 MEQ 1000 ML 1,000 ML IV SCH ×2 (03:37→08:05)
[2018-06-25 04:00] VITALS: BP 95/64
--- NOTE | 2018-06-25 08:28 | General Surgery Progress Note ---
Subjective Progress Notes Subjective No complaints Physical Exam Vital Signs Date Time Temp Pulse Resp B/P (MAP) Pulse Ox O2 Delivery O2 Flow Rate FiO2 06/25/18 04:00 97.7 52 95/64 (74) 94 Room Air 06/24/18 13:54 15 Intake and Output 06/25/18 07:00 Intake Total 2752 ml Output Total 250 ml Balance 2502 ml Intake Oral 380 ml IV Total 2372 ml Output Emesis 250 ml # Voids 4 General Appearance: Alert, Awake, No Acute Distress, Afebrile Neuro: No Gross deficits ENT: Moist Mucous Membranes Cardiovascular: Regular Rate and Rhythm Respiratory: No Respiratory Distress, Clear to Auscultation GI: Soft and Non-Tender (Incisions with Dermabond intact) Extremities: Soft and Non Tender Result Diagram: 06/24/1851006/24/18510 Assessment and Plan Problems: (1) Acute gallstone pancreatitis Status: Acute Assessment & Plan: 06/22/18: Admit, NPO, bowel rest, IV fluids, follow her clinical exam and labs. Follow closely for worsening pancreatitis, follow fluid status. Will go to surgery for lap ace when pancreatitis resolves. I have explained gallstone pancreatitis with the patient in detail and I have explained surgery, including both laparoscopic and open cholecystectomy. Pt seems to understand this discussion and her questions have been answered. She would like to proceed with this plan, including surgery when her pancreatitis resolves. We will move her up to FCU so she can be with her and continue breast feeding. 06/23/18: Doing well. No symptoms currently. Labs not drawn yet. Will see what labs are and if markedly improved will proceed with surgery later today vs tomorrow. 06/24/18: Lipase and T Bili back to WNL. I discussed the planned procedure of laparoscopic cholecystectomy with cholangiography including the risks and possible complications. All questions were answered. Informed consent obtained. To OR this am. 06/25/18: Feeling well, tolerating diet. I discussed with patient post operative home care instructions, will discharge today. Follow up in clinic in 7-10 days. Condition good Time Spent: < 30 min Copies to: PÉREZ SANTOS MD ; Exam Sepsis Risk: No Definite Risk HARPREET NOLASCO MD Jun 25, 2018 08:28
[2018-06-25] MEDS ORDERED: ACET-2007 PO (08:33)
[2018-06-25] MEDS ORDERED: DOCU-202 PO (08:33)
--- NOTE | 2018-06-25 08:36 | Hospitalist Depart ---
Discharge Summary Reason for Hosp/Final Diag: (1) Acute gallstone pancreatitis Status: Acute Hospital Course & Plan: 06/22/18: Admit, NPO, bowel rest, IV fluids, follow her clinical exam and labs. Follow closely for worsening pancreatitis, follow fluid status. Will go to surgery for lap ace when pancreatitis resolves. I have explained gallstone pancreatitis with the patient in detail and I have explained surgery, including both laparoscopic and open cholecystectomy. Pt seems to understand this discussion and her questions have been answered. She would like to proceed with this plan, including surgery when her pancreatitis resolves. We will move her up to FCU so she can be with her and continu e breast feeding. 06/23/18: Doing well. No symptoms currently. Labs not drawn yet. Will see what labs are and if markedly improved will proceed with surgery later today vs tomorrow. 06/24/18: Lipase and T Bili back to WNL. I discussed the planned procedure of laparoscopic cholecystectomy with cholangiography including the risks and possible complications. All questions were answered. Informed consent obtained. To OR this am. 06/25/18: Feeling well, tolerating diet. I discussed with patient post operative home care instructions, will discharge today. Follow up in clinic in 7-10 days. Departure Weight (Pounds): 160 Result Diagram: 06/24/1851006/24/18510 Condition: Improved Discharge: Home Time Spent: < 30 min Discharge Instructions Home Meds Active Scripts Acetaminophen (MAPAP) 325 Mg Tablet, 650 MG PO Q6H PRN for FEVER/PAIN for 7 Days, #1 BOTTLE 0 Refills Prov:HARPREET NOLASCO MD 06/25/18 Docusate Sodium (DOCUSATE SODIUM) 100 Mg Capsule, 100 MG PO BID for 10 Days, CAPSULE Prov:HARPREET NOLASCO MD 06/25/18 Reported Medications [ Control] No Conflict Check 06/22/18 Pnv #116/Iron Fumarate/Fa/Dha (EXPECTA COMBO PACK) 1 Each Combo..pkg 05/03/18 Discontinued Scripts Ferrous Sulfate (FERROUS SULFATE) 325 Mg Tablet, 325 MG PO DAILY, #30 TAB 0 Refills Prov:TUNDE YEAGER MD 05/20/18 Oxycodone/Acetaminophen (OXYCODONE/ACETAMINOPHEN 5MG/325 MG) 5 Mg/325 Mg Tab, 1- 2 TAB PO Q4H PRN for PAIN, #20 TAB 0 Refills Prov:TUNDE YEAGER MD 05/20/18 Ibuprofen (IBUPROFEN) 800 Mg Tablet, 800 MG PO Q8H PRN for PAIN, #30 TAB 0 Refills Prov:TUNDE YEAGER MD 05/20/18 Follow up Referrals: General Surgery @ [facility] Diet: Regular Activity: No Heavy Lifting Venous Thromboembolism Antithrombotics Is Pt On Any Antithrombotics?: No HARPREET NOLASCO MD Jun 25, 2018 08:36
[2018-06-25] MEDS: DOCUSATE SODIUM 100 MG CAP PO SCH (08:47)
[2018-06-25] MEDS ORDERED: PANTOPRAZOLE SOD 40 MG IV VIAL IVP SCH (09:00)
[2018-06-25 11:35] VITALS: BP 107/68
[2018-06-25] MEDS ORDERED: INFLUENZA VIRUS VAC 0.5ML SYR IM ONLY ONE (12:30)
== END 2018-06-25 14:40 | disposition home or self-care (01) | DRG 769 ==
LOC: ER 15:02 → MED 16:37 → PED 19:15
PROVIDERS: ADMIT Surgery; ATTEND Surgery
PROC: BF13YZZ Fluoroscopy of Gallbladder and Bile Ducts using Other Contrast (ICD-10-PCS; 2018-06-24)
PROC: 0FT44ZZ Resection of Gallbladder, Percutaneous Endoscopic Approach (ICD-10-PCS; principal; 2018-06-24 09:30)
DX: O99.63 Diseases of the digestive system complicating the puerperium (principal); K85.10 Biliary acute pancreatitis without necrosis or infection; K81.2 Acute cholecystitis with chronic cholecystitis; Z23 Encounter for immunization
CPT/HCPCS: 36415; 71046; 74300; 76705; 81001; 81025; 82040; 82247; 82248; 82310; 82374; 82435; 82565; 82947; 83690; 84075; 84132; 84155; 84295; 84450; 84460; 84520; 85025; 85610; 85730; 88304; 90471; 90674; 96361; 96374; 96376; 99284; C9113; J0743; J1100; J1170; J1630; J1650; J1885; J2001; J2250; J2405; J2704; J3010; J3480; J3490; J7030; J7050